=== PATIENT | male | born 1980 | race African-American/Black ===

== ENCOUNTER 2020-07-13 01:56 | Inpatient (IN) | payer BC ==
[2020-07-13] VITALS (34 sets, daily range): BP systolic 109–133; BP diastolic 60–83
[~2020-07-13] VITALS: Ht 177.8 cm; Wt 67.6 kg
[2020-07-13 07:36] LABS: BE(vivo) 2.6 mmol/L (-2 to +3); HCO3 26.2 mmol/L (22.0-26.0); PCO2 37.5 mmHg (35.0-45.0); PO2 191.5 mmHg (80.0-100.0); pH 7.462 (7.360-7.450); sO2 99.4 % (92.0-98.0)
[2020-07-13] MEDS ORDERED: ALPRAZOLAM2 MG PO (09:05)
[2020-07-13 09:20] LABS: HEMATOCRIT 47.5 % (42.0-52.0); HEMOGLOBIN 15.8 gm/dL (14.0-18.0); MCH 30.8 pg (26.0-34.0); MCHC 33.2 g/dL (28.0-37.0); MCV 92.5 fL (80.0-100.0); PLATELET COUNT 240 thou/uL (150-400); RBC 5.13 mil/uL (4.50-6.00); RDW 14.7 % (10.5-14.5); WBC 26.4 thou/uL (4.0-11.0)
[2020-07-13 09:33] LABS: ALBUMIN 3.2 g/dL (3.4-5.0); CALCIUM 8.5 mg/dL (8.5-10.1); CREATININE 1.7 mg/dL (0.7-1.3); MAGNESIUM 3.3 mg/dL (1.8-2.4); POTASSIUM 3.1 mmol/L (3.5-5.1); TOTAL BILIRUBIN 0.9 mg/dL (0.2-1.0); TOTAL PROTEIN 7.2 g/dL (6.4-8.2)
[2020-07-13 10:04] LABS: ABSOLUTE NEUTROPHILS 24.8 thou/uL (1.4-8.2); PLATELET ESTIMATE NORMAL
--- NOTE | 2020-07-13 10:30 | NUR ---
chart review. discussed during los and am rounds. unable to visit with him rt on vent, fio2 50%. he was found down at home. mom could not reach him via phone. reported by bedside nurse he had allot of negative events happen lately ie divorce, hx of drug abuse. was sent over from [facility]. - covid. will cont following as needed for dc needs.
[2020-07-13 10:50] LABS: URINE BILIRUBIN NEGATIVE (Negative); URINE BLOOD 3+ (Negative); URINE CLARITY CLEAR; URINE COLOR YELLOW; URINE GLUCOSE-RANDOM* NEGATIVE (Negative); URINE KETONES 1+ (Negative); URINE LEUKOCYTES-REFLEX NEGATIVE (Negative); URINE NITRITE-REFLEX NEGATIVE (Negative); URINE PROTEIN (DIPSTICK) 1+ (Negative); URINE SPECIFIC GRAVITY 1.025 (1.005-1.035); URINE UROBILINOGEN 0.2 E.U./dl (0.2-1.0)
[2020-07-13 11:19] LABS: CASTS None Seen /LPF (None Seen); SQUAMOUS 0-3 Few /LPF (0-3); URIC ACID CRYSTALS >10 Many /LPF (None Seen); URINE RBC 3-10 Few /HPF (NONE SEEN); URINE WBC-REFLEX 0-5 Rare /HPF (0-5)
[2020-07-13 11:20] LABS: BACTERIA-REFLEX 1-9 Few /HPF (None Seen)
--- NOTE | 2020-07-13 13:00 | NUR ---
Per Dr. Craig box to D/C COVID isolation
--- NOTE | 2020-07-13 17:20 | NUR ---
VAT CONSULTED FOR CVL PLACEMENT. RIGHT IJ 6FR TL JACC CATHETER PLACED. TRIMMED 25 WITH 7CM EXTERNAL. PT INTUBATED/SEDATED AND TOLERATED WELL. CXR FOR TIP LOCATION.
[2020-07-13 17:49] LABS: ALBUMIN 2.7 g/dL (3.4-5.0); CALCIUM 8.3 mg/dL (8.5-10.1); CREATININE 1.3 mg/dL (0.7-1.3); POTASSIUM 3.6 mmol/L (3.5-5.1); TOTAL BILIRUBIN 0.8 mg/dL (0.2-1.0); TOTAL PROTEIN 6.3 g/dL (6.4-8.2)
--- NOTE | 2020-07-13 19:01 | NUR ---
RADIOLOGY REPORTS IJ TIP OVERLIES ATRIAL CAVAL JUNCTION. LINE RELEASED FOR USE, PER HOSPITAL POLICY.
[2020-07-14] VITALS (60 sets, daily range): BP systolic 105–165; BP diastolic 55–79
[2020-07-14 04:47] LABS: BASOPHILS 0.2 % (0.0-2.0); HEMATOCRIT 41.2 % (42.0-52.0); LYMPHOCYTES 5.5 % (24.0-44.0); MCH 30.5 pg (26.0-34.0); MCHC 32.7 g/dL (28.0-37.0); MCV 93.3 fL (80.0-100.0); MONOCYTES 2.8 % (1.0-8.0); PLATELET COUNT 190 thou/uL (150-400); POLYS 91.5 % (36.0-66.0); RBC 4.41 mil/uL (4.50-6.00); RDW 14.9 % (10.5-14.5)
[2020-07-14 05:01] LABS: HEMOGLOBIN 13.5 gm/dL (14.0-18.0)
[2020-07-14 05:07] LABS: CALCIUM 8.6 mg/dL (8.5-10.1); CREATININE 1.1 mg/dL (0.7-1.3); POTASSIUM 3.9 mmol/L (3.5-5.1)
[2020-07-14 05:23] LABS: BE(vivo) 2.7 mmol/L (-2 to +3); HCO3 26.6 mmol/L (22.0-26.0); PCO2 38.5 mmHg (35.0-45.0); PO2 138.8 mmHg (80.0-100.0); pH 7.457 (7.360-7.450); sO2 98.9 % (92.0-98.0)
--- NOTE | 2020-07-14 14:00 | NUR ---
PT FAILED CPAP TRIAL, INCREASED RR, ANXIETY, WITH LARGE AMOUNTS OF SECRETIONS. ABLE TO DECREASE O2 TO 30%, ORDERS TO TRIAL AGAIN TOMORROW. SPOKE WITH MOTHER REGARDING PROGRESS, SHE AGREES WITH PLAN OF CARE.
--- NOTE | 2020-07-14 16:14 | NUR ---
Case discussed in ICU Rounds this am. Pt out of ISO, Covid neg. Pt's mother Jania was at bedside this am. Pt remains intubated but able to shake head yes and not and write questions or answers on a notepad. His mother reports he has been laid off work from [employer] but likely to go back the beginning of July. His health insurance coverage is still active per . His mother notes his 12 yr old dtr lives with her mom and his most recent girl friend ended their relationship. Pt has hx of drug/ethol abuse but screens are negative. Will revisit with the pt once he is able to participate fully in mental health screening; may need psych eval. Support provided. Pt's mother to touch base with his employer if he gets called back to work he may need a letter verifying his inpt status. Cm role introduced.
[2020-07-15] VITALS (14 sets, daily range): BP systolic 107–170; BP diastolic 57–90
[2020-07-15 04:52] LABS: HEMOGLOBIN 12.6 gm/dL (14.0-18.0); MCH 30.7 pg (26.0-34.0); MCV 93.1 fL (80.0-100.0); RBC 4.09 mil/uL (4.50-6.00); RDW 14.4 % (10.5-14.5); WBC 12.7 thou/uL (4.0-11.0)
[2020-07-15 05:08] LABS: CALCIUM 8.5 mg/dL (8.5-10.1); CREATININE 0.9 mg/dL (0.7-1.3); POTASSIUM 4.3 mmol/L (3.5-5.1)
[2020-07-15 08:53] LABS: BE(vivo) 0.8 mmol/L (-2 to +3); HCO3 24.3 mmol/L (22.0-26.0); PCO2 35.4 mmHg (35.0-45.0); PO2 102.3 mmHg (80.0-100.0); pH 7.454 (7.360-7.450)
--- NOTE | 2020-07-15 11:00 | NUR ---
PT A/OX4, VERY HIGH ANXIETY POST EXTUBATION, SAYS HE IS FEELING OUT OF BODY, "ON A BAD TRIP". REPORTS UNABLE TO REMEMBER INTUBATION AND BEING ON VENTILATOR. SEEMS TO BE IN SHOCK REGARDING TIME AND DATE. NURSE HELP REORIENT PT ON EVENTS THAT LEAD UP TO INTUBATION AND TRANNFER TO [facility]. RICHELLE AT BEDSIDE, PT WAS NOT THRILLED THAT SHE WAS COMING BUT REPORTED THAT THE VISIT WAS BETTER THAN HE THOUGHT IT WAS GOING TO BE. 1300 PT UP TO CHAIR, SEVERE ANXIETY PRIOR TO STANDING, COMPLETELY FELL OVER ON HIS SIDE AND REFUSED TO TRY TO STAND. NURSE ENCOURAGED PT THAT HE WAS YOUNG AND STRONG AND IT WAS MIND OVER MATTER. PT ABLE TO COMPLETE TASKS OF CHANGING GOWN, WASHING FAC, WIPING BUTTOCKS, AND FEEDING SELF DISPITE TELLING THE NURSE REPEATEDELY THAT HE COULDNT.
--- NOTE | 2020-07-15 11:50 | HC ---
[facility] [address] [place] [address] CONSULTATION Name: PIPPA SEQUEIRA Room #: [facility]- ADM IN M.R.#: [id number] Admission: 07/13/20 Attend Phys: Joe Travis MD Discharge: Date of : 84 Report #: [id number] THIS REPORT FOR: cc: NO FAMILY PHYSICIAN or PCP NO FAMILY PHYSICIAN or PCP Lyle Srinivasan MD ~ DOC #: [id number] Lyle Srinivasan MD DATE OF SERVICE: 07/14/2020 INFECTIOUS DISEASE CONSULTATION ATTENDING PHYSICIAN: Dr. Travis. REASON FOR EVALUATION: Pneumonitis, complicated by respiratory failure. HISTORY OF PRESENT ILLNESS: This is a 39-year-old gentleman who apparently has been under significant stress, does have underlying anxiety, who was found unresponsive by the family member. Details are not entirely clear. He was evaluated at an outside hospital, was intubated, I believe, emergently due to respiratory failure and difficult to protect her airway. Imaging suggested infiltrates, possible aspiration pneumonitis. He was transferred. He is maintained on ventilatory support. His mother is present. He is actually responsive at this point. There was a history of acute mental status changes. He is trying to communicate, does admit to pain primarily associated with his throat attributable to the ET tube. In addition, he says he has generalized discomfort. He was evaluated. Initial ABG showed a pH 7.462, pCO2 of 37.5, pO2 of 191.5 on 80%. He is currently on FiO2 of 30%. Lactic acid was 1.3. White count was elevated at 26.4 with primary neutrophilia. COVID-19 test PCR was negative. Urinalysis, 0-5 white cells. Surveillance for MRSA by PCR was negative as well. Followup chest x-ray, bilateral tiny apical pneumothoraces. Repeat white count of 12.0. Blood cultures collected at time of admission are sterile thus far. He was empirically started on antimicrobial therapy with Zosyn and vancomycin. He has been afebrile, has not required pressor support. ALLERGIES: None known. MEDICATIONS: Include p.r.n. analgesics, antiemetics, Zosyn, enoxaparin, ipratropium/albuterol inhaler, midazolam, famotidine, sliding scale insulin, vancomycin, and was given a dose of methylprednisolone as well. PAST MEDICAL HISTORY: As described above, anxiety. Also, has a history of illicit substance abuse. SOCIAL HISTORY: Fairly regular ethanol. Smokes cigarettes, denies marijuana. [facility] [address] [place] [address] CONSULTATION Name: PIPPA SEQUEIRA Room #: [facility] IN [facility]#: [id number] Admission: 07/13/20 Attend Phys: Joe Travis MD Discharge: Date of : 84 Report #: [id number] FAMILY HISTORY: Noncontributory. REVIEW OF SYSTEMS: Not reliably obtained. PHYSICAL EXAMINATION: GENERAL: He is supine, maintained on ventilatory support. Has an ET and NG tube in place. Appears to be moderately uncomfortable, somewhat undernourished. VITAL SIGNS: Afebrile, pulse 72, respirations 24, blood pressure 121/68. SKIN: Warm, dry, no rashes. HEENT: With tubes in place as described above. NECK: Supple. LUNGS: Diminished breath sounds. Few scattered coarse sounds bilaterally. HEART: Regular. I do not appreciate a murmur. ABDOMEN: Mildly distended, somewhat firm, nontender. Cannot appreciate any evidence of peritoneal signs. GENITOURINARY AND RECTAL: Deferred. LABORATORY DATA: Most recent chest x-ray, minimal left apical pneumothorax, resolution of right-sided pneumothorax. Blood cultures are sterile thus far. Patient's ABG earlier today, pH 7.457, pCO2 of 38.5, pO2 of 138.8. He was on 40%. Electrolytes: Sodium 149, potassium 3.9, chloride 112, bicarbonate 26, anion gap of 11, BUN and creatinine 20 and 1.1, glucose of 114. Estimated GFR of 91. CBC: White count of 12.0, H and H 13.5 and 41.2, platelets of 190. Right lower extremity venous Doppler negative for DVT. ASSESSMENT AND PLAN: Pneumonitis, complicated by respiratory failure, presumably on the basis of aspiration, not entirely clear as to the etiology of the pneumothorax. No evidence of trauma that would suggest a fall. Suggest he has improved in the course of the last 24 hours, where there is a component of infection is not entirely clear, but I think it is reasonable to continue empiric therapy. Continue efforts to wean off support. We may get additional information when he is able to respond. Will monitor expecting he is at risk for additional nosocomial related complications including infection. Lyle Srinivasan MD [facility] <ELECTRONICALLY SIGNED> By: Lyle Srinivasan MD 07/15/20 1150 [id number] Lyle Srinivasan MD /nt
--- NOTE | 2020-07-15 18:55 | NUR ---
PT CALLS NURSE INTO ROOM VIA CALL LIGHT, BOTH DAY AND NIGHT NURSES ENTER, PT REPORTS "IF I CANT GO TO SLEEP, I WANT TO END IT ALL, I CAN NOT FEEL LIKE THIS ANYMORE. THIS NURSE ASK PT EXPLAIN WHAT YOU FEEL -"I JUST CANT GO ON LIKE THIS, I WOULD NOT WISH THIS ON ANYONE." THIS NURSE ASKED PT IF HE IS SUICIDAL - "IF THAT MEANS THAT I CANT GO TO SLEEP THEN YES I GUESS THATS WHAT THAT MEANS" THIS NURSE ASK IF PT HE IS FEELING AFRAID OF HIMSELF THAT HE MIGHT HARM HIMSELF - "IF I DONT STOP FEELING THIS WAY, AND IF I DONT GET SLEEP, THEN YES. I WILL PAY YOU 10 MILLION DOLLARS TO MAKE IT ALL GO AWAY, JUST KNOCK ME OUT." THIS NURSE ASK PT IF THE INCIDENT THAT BROUGHT HIM IN WAS A SUICIDE ATTEMPT- "NO IT WAS NOT." DR MEJIA PAGED TO REPORT SITUATION, ORDERS FOR 1:1 AND SEROQUEL 50MG ONETIME.
[2020-07-16] VITALS (8 sets, daily range): BP systolic 90–121; BP diastolic 55–76
[2020-07-16 04:48] LABS: HEMATOCRIT 40.2 % (42.0-52.0); HEMOGLOBIN 13.2 gm/dL (14.0-18.0); MCH 30.5 pg (26.0-34.0); MCHC 32.9 g/dL (28.0-37.0); MCV 92.7 fL (80.0-100.0); RBC 4.34 mil/uL (4.50-6.00); RDW 14.1 % (10.5-14.5)
[2020-07-16 04:56] LABS: CALCIUM 8.3 mg/dL (8.5-10.1); POTASSIUM 4.1 mmol/L (3.5-5.1)
--- NOTE | 2020-07-16 07:28 | NUR ---
REPORT RECEIVED. PATIENT A/OX4. DENIES SOA, N/V. REMAINS AGITATED. ADMITS TO HAVING THOUGHTS OF HARMING HIMSELF. SITTER AT THE BEDSIDE. C/O PAIN AND NOT BEING ABLE TO SLEEPING. MEDS GIVEN ORDERED. PROVIDER AWERE. REFUSES CARES. DOES NOT WANT BLOOD PRESSURE TAKEN. REMAINS AFEBRILE. VSS. WILL KEEP MONITORING.
--- NOTE | 2020-07-16 09:24 | NUR ---
ASSUMED PATIENT CARE AT 0700. SITTER IN ROOM FOR SI. PATIENT IS REFUSING TO WEAR BLOOD PRESSURE CUFF, ALLOWED ME TO SPOT CHECK HIS BLOOD PRESSURE AT 0800. COMPLAINING OF ANXIETY, "PAIN ALL OVER MY BODY, I CAN'T DECRIBE", AND WANTING TO SLEEP. PRN XANEX GIVEN.
--- NOTE | 2020-07-16 09:35 | NUR ---
cm spoke with dr bolton and boris, they going to visit with johnson and then will be able to let cm know if needs to go inpt pysch. will cont following as needed for dc needs. has 1:1 [address]ter rt voice thoughts of harming self last night 2nd cant sleep.
--- NOTE | 2020-07-16 15:12 | NUR ---
RECIEVED PATIENT FROM ICU AT APPROX 1500. PATIENT IS A&OX4 AND COMPLAINS OF PAIN /. NORCO GIVEN TO PATIENT; PATIENT BECAME AGITATED AND STARTED YELLING ABOUT HOW "NO WONDER THAT SHIT HASN'T DONE ANYTHING FOR MY PAIN" WHEN TOLD THE DOSAGE OF PAIN MEDS HE HAS BEEN AND WILL BE GETTING. PATIENT ALSO VOICED HOW HE IS "COMING DOWN" OFF OPIOIDS AND NEEDING METHADONE. PROVIDER NOTIFIED AND PAIN MANAGEMENT TO BE CONSULTED. VITALS WERE STABLE OTHERWISE. PATIENT WAS REORIENTED TO ROOM, GIVEN CALL BUTTON AND VOICED NO FURTHER NEEDS. WILL CONTINUE FREQUENT MONITORING
--- NOTE | 2020-07-17 04:41 | NUR ---
PATIENT AOX4 MAKES NEEDS KNOWN. PATIENT BEEN SLEEPY THIS SHIFT. PAIN CONTROLLED THIS SHIFT. PATIENT DENIED ALL PSYCH ISSUES. FALL PRECAUTION IN PLACE. PATIENT IN BED ASLEEP AT THIS TIME BREATHING REGULAR AND UNLABOURED.
[2020-07-17 04:54] VITALS: BP 103/60
[2020-07-17 07:15] VITALS: BP 95/54
[2020-07-17] MEDS ORDERED: CEFUROXIME500 MG PO (12:49)
--- NOTE | 2020-07-17 14:24 | NUR ---
Assumed pt care this am, pain is managed with medications, partial relief is noted. Pt recounted his unpleasant experience in the ICU and what brought him here. Pt stated he is an opiod user and was in the process of "quitting", he intentionally locked himself in his apartment and did not want to pick up driver the phone to stay away from temptation. Daughter and ex got concerned and found the pt on the floor in his own vomit then 911 was called. Pt expressed his determination to quit and get help. Was able to work with PT and a,bulated the halls with a steady gait. Pt requested to be MD CELSA informed awaiting mother of the pt for pick up driver, IV removed dc instructiosn and prescriptions given to the pt.
--- NOTE | 2020-07-18 13:55 | HC ---
[facility] [address] [place] [address] CONSULTATION Name: PIPPA SEQUEIRA Room #: 455-P [facility] IN M.R.#: [id number] Admission: 07/13/20 Attend Phys: Verónica Travis MD Discharge: 07/17/20 Date of : 84 Report #: [id number] THIS REPORT FOR: cc: NO FAMILY PHYSICIAN or PCP NO FAMILY PHYSICIAN or PCP Verónica Peres DO ~ DOC #: [id number] VERÓNICA Peres DO DATE OF SERVICE: 07/15/2020 INPATIENT PSYCHIATRIC C-L EVALUATION PRIMARY ATTENDING: Verónica Travis MD PULMONARY CRITICAL ITALIAN LECTURER: Bobo Black M.D. . CONSULTING PSYCHIATRIST: Verónica Peres DO REASON FOR CONSULTATION: Suspected history of mental illness, delirium and possible suicide attempt. SOURCE OF INFORMATION: Interview with the patient and his mother at bedside, discussion with the patient's nurse, chart review. HISTORY OF PRESENT ILLNESS: This is a 39-year-old male who was admitted on 07/13/2020. The patient was a transfer from [facility], status post respiratory distress requiring intubation. The patient was reportedly found by family member unresponsive, taken to [place] ER. CT head was obtained and was unremarkable. Chest x-ray was obtained and revealed interstitial opacities, likely atypical pneumonia. He was placed on BiPAP, but deteriorated requiring intubation. The patient was extubated this morning I believe. He states he feels like he needs to go to sleep and wake up better. The patient is requesting Xanax. He denies that he was suicidal or committed suicide; however, he does not know why he was found down, passed out, etc. The patient has a number of stressors including on lay-off status at the [employer] where he works, separation from his significant other and daughter. ALLERGIES: The patient has no known allergies. REVIEW OF SYSTEMS: At bedside, stated he felt weak, deconditioned. Otherwise, 10-point review of systems was negative. PAST PSYCHIATRIC HISTORY: Anxiety disorder. PAST MEDICAL HISTORY: Incomplete. [facility] [address] [place] [address] CONSULTATION Name: HUAPIPPA T Room #: 455-P [facility] IN ..#: [id number] Admission: 07/13/20 Attend Phys: Verónica Travis MD Discharge: 07/17/20 Date of : 84 Report #: [id number] PAST SURGICAL HISTORY: Incomplete. SOCIAL HISTORY: Urine drug screen was positive for THC. Briefly reviewed. LABORATORY DATA: From today, hematology: H and H 12.6 and 38.0. White count 12.7, platelet count 199. Blood gas today; pO2 102.3, pCO2 of 35.4, bicarbonate 24.3. He was on CPAP 5/5. Chemistries today, sodium 147, potassium 4.3, chloride 110, bicarbonate 26, anion gap 11, BUN 22, creatinine 0.9, estimated GFR 115. Calcium 8.5. Triglycerides 167. Urinalysis: 1+ protein, 1+ ketones, 3+ blood, this was from the 25th. Red blood cells positive, urine bacteria 109. I do not think urine culture was triggered. He had blood cultures done, which showed no growth so far and sputum culture was done with Gram stain showing leukocytes and respiratory cultures pending. COVID-19 serology was negative. MRSA PCR is negative. The patient reports being prescribed Xanax 1 mg 3 times a day and cannot tell me who the provider is providing this. PHYSICAL EXAMINATION: VITAL SIGNS: At the time of examination were as follows: Temperature 98.1, pulse 68, respirations 22, BP 120/68, O2 sat 100%. MUSCULOSKELETAL: Seated in chair at bedside and central line is visible. The patient is covered in a blanket. MENTAL STATUS EXAMINATION: This is a well-developed, somewhat thin appearing male. Attention fair. Concentration limited. Speech loud deliver. Thought process: Linear and goal directed. mood/affect irritabel, congruent, constricted Thought content: Focused and angry about recent experience. Denied SI and HI. Denied auditory, visual, or tactile hallucinations. Memory not formally tested. Insight limited. Judgment limited. Fund of knowledge, no greater than average. FORMULATIONS: A 39-year-old male transferred here from [facility] after developing acute respiratory failure, suspicious circumstances that he was found under. DIAGNOSES: At this time, delirium secondary to general medical condition, resolving; unspecified anxiety, not excluded; mood disorder. RECOMMENDATIONS: Start Seroquel 25 mg oral 3 times a day for anxiety. I will defer to the primary team on continuation of the p.r.n. Xanax. Certainly, there are some suspicious circumstances, and I do not think of the situation warrants escalation of the current Xanax regimen being offered. BRIEF ADDENDUM: His nurse called me and stated he was threatening suicide if he could not get to sleep. I ordered a one-time 50 mg p.o. Seroquel. In addition, [facility] [address] [place] [address] CONSULTATION Name: PIPPA SEQUEIRA Room #: 455-P [facility] IN M.R.#: [id number] Admission: 07/13/20 Attend Phys: Verónica Travis MD Discharge: 07/17/20 Date of : 84 Report #: [id number] I told her to place the patient on suicide precautions, given the many uncertainties. In addition, I do not think I clarified earlier, his mother provided some collateral, but she could not explain what may have happened to him. I will follow along with you. DO SISI Patricio/[facility] <ELECTRONICALLY SIGNED> By: Verónica Peres DO 07/18/20 1355 [id number] [id number] Verónica Peres DO /nt
== END 2020-07-17 15:40 | disposition home or self-care (01) | DRG 871 ==
LOC: ICU 01:56 → 4W 07-16 14:48
PROVIDERS: Internal Medicine; Internal Medicine Pulmonary Disease; Nurse Practitioner; ADMIT Hospitalist; ATTEND Hospitalist
DX: A41.9 Sepsis, unspecified organism (principal); J96.01 Acute respiratory failure with hypoxia; J18.9 Pneumonia, unspecified organism; J93.9 Pneumothorax, unspecified; E87.0 Hyperosmolality and hypernatremia; M62.82 Rhabdomyolysis; E44.0 Moderate protein-calorie malnutrition; F41.9 Anxiety disorder, unspecified; E86.0 Dehydration; F19.10 Other psychoactive substance abuse, uncomplicated; E87.6 Hypokalemia; Z20.822 Contact with and (suspected) exposure to COVID-19; Z68.21 Body mass index [BMI] 21.0-21.9, adult
CPT/HCPCS: 10047; 10078